=== PATIENT | female | born 1965 | race Caucasian/White ===

== ENCOUNTER 2020-10-07 07:00 | Outpatient (RCR) | payer OTHER, SELFPAY ==
--- NOTE | 2020-09-19 08:05 | HP.PTEVAL ---
Patient's Visit Information GLORIA DODD is a 54 year old F referred to Physical Therapy by ANNE-MARIE CARSON with a diagnosis of Right Shoulder Impingement. Date of Evaluation: 09/19/20 Physical Therapist: Keyla Patton DPT - Visit Plan Frequency: 2x /Week Duration: 4 Weeks Plan: Scapular Strength/Stabilization, Thoracic Mobility, Ultrasound as modality of choice. HEP Given IE: Postural education, Scapular retraction, pec corner stretch, bilateral ER GTB, upper trap stretch - Subjective She has been having shoulder pain in the right for years- Went to [facility]- Level 3 impingement with x-rays- did not think its a total tear- has to do therapy for 2 weeks prior to an MRI. Pain is located in the anterior shoulder- does not radiate down the arm. Does have tightness in the neck but has gone away. Describes the pain as sharp but when she lays on it its more dull and achy. Sleep: disturbed hard to lay on the right side. Worst: 7/10 Agg: Can't lay on it or reach behind or overhead Best: 0/10 Eases: bring down to a resting position and rub it. No medications or injections. No MRI. No decreased shear operator helper strength, finger dexterity- Left Hand dominate but does more sports things right handed. No blurred vision, CERVANTES- does have an ENT eval scheduled for possible BPPV. Feels the shoulder continues to get worse. 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 - Objective Posture: FH, RS- can correct with verbal and tactile cues but does not maintain. Gait: good arm swing and trunk rotation-posture continues to be fair with FH, RS. Palpation: not tender to touch. Observation: moderate winging of the scapula- poor scapular mobility. ROM: Cervical: WFL tightness with upper trap and levator stretching Shoulder: Flexion: 150 degrees Abd: 165 degrees, IR: to bra line, ER: 50 degrees- can perform all WNL with overpressure and pain Elbow/Wrist/Hand: WFL Finger dexterity: WFL. Strength: Scap: poor, Shoulder: 4/5 isometric in 90/90, Elbow: 4+/5, Wrist: 5/5, Associate Store Director: equal bilaterally. Sensation: WNL. Special Test: Spurlings: negative, Empty can: negative, Speeds: positive, Gomez: positive, Neer: positive - Goals Goal 1:: Patient will be I with HEP and progression Goal Time Frame: 4-6 Weeks Goal 2:: Patient will maintain proper posture t/o tx session to demo increased core and scapular strength/stabilization Goal Time Frame: 4-6 Weeks Goal 3:: Patient will demo full AROM of the right UE without pain Goal Time Frame: 4-6 Weeks Goal 4:: Patient will report no pain for 1 week Goal Time Frame: 4-6 Weeks - Rehabilitation Potential Physical Therapy Diagnosis: Patient presents with hypomobility- she has decreased pain free ROM, scapular and UE strength/stabilization and muscular endurance leading to poor posture and increased pain with ADL's. Rehabilitation Potential: Fair - Anticipated Interventions Patient/Client Instruction: Educate patient on: Benefits of Fitness Program Therapeutic Exercise to Include: Strength training, Endurance training, Coordination, Body mechanics, Postural training, Flexibilty training, Neuromotor development, Passive ROM, Active ROM, Dynamic Lumbar Stabilization, Scapular Strength/Stabilization For the Purpose of:: To improve muscle performance and motor function TENS: Yes Cryotherapy (ice pack, ice massage): Yes Thermo therapy (hot pack): Yes Ultrasound (thermal/non thermal): Yes Thank you for the opportunity to evaluate your patient. For Medicare and Medicare HMO plans, please review the plan of care and approve it. It will need to be FAXED BACK to us at [phone] for Medicare purposes. For Medicare only, by signing this I certify the plan of care. Please let me know if there are questions or concerns regarding this plan of care. Physician Signature: Date:
--- NOTE | 2020-10-07 07:32 | HP.PTDCSUM ---
It has been my pleasure to treat GLORIA DODD referred by ANNE-MARIE CARSON, with the diagnosis of Right Shoulder Impingement for a total of 6 visit(s). Discharge Date: Please see the following information for a summary of their discharge status. Subjective: Patient reports she is ready to be d/c and continue HEP % Improvement: 90 Objective/Function: Posture: fair throughout. Gait: good arm swing and trunk rotation. Palpation: not tender to touch. Observation: moderate winging of the scapula bilaterally ROM: Cervical: WFL tightness with upper trap and levator stretching Shoulder: WFL Elbow/Wrist/Hand: WFL Finger dexterity: WFL. Strength: Scap: fair, Shoulder: 4+/5 isometric in 90/90, Elbow: 5/5, Wrist: 5/5, Examiner Of Currency: equal bilaterally. Sensation: WNL. Special Test: Spurlings: negative, Empty can: negative, Speeds: positive, Gomez: positive, Neer: positive Goal 1:: Patient will be I with HEP and progression Goal Progress: Goal Met Goal 2:: Patient will maintain proper posture t/o tx session to demo increased core and scapular strength/stabilization Goal Progress: Progressing Goal 3:: Patient will demo full AROM of the right UE without pain Goal Progress: Goal Met Goal 4:: Patient will report no pain for 1 week Goal Progress: Progressing Plan: 10/07/2020: Discharge to home exercise program. Scapular Strength/Stabilization, Thoracic Mobility, Ultrasound as modality of choice. HEP Given IE: Postural education, Scapular retraction, pec corner stretch, bilateral ER GTB, upper trap stretch If there are questions or concerns regarding this patient's physical therapy, please feel free to call me at [phone]. Thank you for the referral of this patient. Sincerely, Keyla Patton, DPT Balance/Gait/Functional tests - Balance/Special Test Scores Quick DASH Score: 15.9075
== END 2020-10-07 10:19 | disposition home or self-care (01) ==
LOC: PT 07:00
DX: M75.111 Incomplete rotator cuff tear or rupture of right shoulder, not specified as traumatic (principal); M75.41 Impingement syndrome of right shoulder
CPT/HCPCS: 97110; 97162; 97164; 97530

== ENCOUNTER → 2024-06-09 | Outpatient (CLI) | payer OTHER, SELFPAY ==
[2024-06-09 11:21] LABS: Absolute Lymphocyte Count 2.26 X10^3/uL (0.83-4.51); Absolute Neutrophil Count 5.4 X10^3/uL (2.0-7.7); Basophil# 0.05 X10^3/uL; Basophil% 0.6 % (0-1); Eosinophil# 0.12 X10^3/uL; Eosinophils% 1.4 % (0-5); Hematocrit 43.3 % (37-47); Hemoglobin 14.4 g/dL (12.0-15.0); Lymphocyte # 2.26 X10^3/ul (0.83-4.51); Lymphocyte % 26.9 % (19-41); Mean Corp Hgb Conc 33.3 g/dL (32-36); Mean Corpuscular Hgb 29.9 pg (27.0-32.0); Mean Platelet Vol. 10.9 fl (6.2-12.0); Monocyte# 0.59 X10^3/uL; NRBC Flagged by Analyzer 0 % (0-5); Neutrophil # 5.36 X10^3/uL (2.7-7.7); Neutrophil % 63.7 % (47-70); Platelet Count 280 K/mm3 (150-450); RBC Distribution Width CV 12.7 % (11.6-14.6); RBC Distribution Width SD 41.8 fl (35.1-43.9); Red Blood Count 4.81 M/mm3 (4.2-5.4); White Blood Count 8.4 K/mm3 (4.4-11.0)
[2024-06-09 11:23] LABS: Color, Urine Yellow (Yellow); Glucose, Dipstick Normal (Normal); Ketone-Dipstick Negative (Negative); Leukocyte Esterase-Dipstick Negative /ul (Negative); Nitrite-Dipstick Negative (Negative); Occult Blood-Urine Negative /ul (Negative); Protein-Dipstick Negative (Negative); Urine Bilirubin Dipstick Negative (Negative); Urine Clarity Clear (Clear); Urine Urobilinogen Normal (Normal)
[2024-06-09 12:20] LABS: Protein, Urine (Random) 9.6 mg/dL (0.0-12.0); Protein:Creat Ratio 79 mg/g CRE (0-200)
[2024-06-09 12:23] LABS: ALB/GLOB Ratio 1.4 RATIO (0.9-2.4); AST(SGOT) 20 U/L (<=31); Alanine Aminotransfer ALT/SGPT 14 U/L (<=34); Albumin, Serum 4.3 g/dL (3.5-5.0); Alkaline Phosphatase 91 U/L (35-104); Anion Gap 11 (5-15); BUN 26 mg/dL (4-19); BUN/Creat Ratio 27.7 RATIO (10-20); Calcium,Total 9.3 mg/dL (7.6-11.0); Carbon Dioxide 22.7 mmol/L (21.0-32.0); Chloride 106 mmol/L (98-108); Creatinine, Serum 0.93 mg/dL (0.70-1.20); EST Glomerular Filtration Rate 72 (>60); Globulin 3.1 g/dL (2.2-4.2); Glucose 92 mg/dL (70-99); Potassium 4.2 mmol/L (3.3-5.1); Protein, Total 7.4 g/dL (5.9-8.4); Sodium Level 139 mmol/L (133-145); Total Bilirubin 0.97 mg/dL (0.00-1.30)
[2024-06-09 12:37] LABS: CRP < 3.00 mg/L (0.0-3.0); Rheumatoid Factor < 10.0 IU/mL (<15)
[2024-06-10 13:08] LABS: CCP IgG Antibodies 9 units (0-19)
[2024-06-12 08:08] LABS: ANTINUCLEAR ANTIBODIES DIRECT Negative (Negative)
== END | disposition home or self-care (01) ==
PROVIDERS: Referring Provider Internal Medicine Rheumatology; Visit Provider Internal Medicine Rheumatology
DX: M18.0 Bilateral primary osteoarthritis of first carpometacarpal joints (principal); M17.11 Unilateral primary osteoarthritis, right knee
CPT/HCPCS: 36415; 80053; 81002; 82570; 84156; 85025; 86038; 86140; 86200; 86431

== ENCOUNTER 2024-08-28 11:00 | Outpatient (RCR) | payer OTHER, SELFPAY ==
--- NOTE | 2024-07-17 08:51 | HP.PTEVAL ---
Patient's Visit Information Visit Information Visit Information: GLORIA DODD is a 58 year old F referred to Physical Therapy by LESVIA VELAZCO with a diagnosis of Joint pain. Date of Evaluation: 06/30/24 Physical Therapist: Josh Santa DPT Visit Plan Frequency: 2-3x /Week Duration: 4 Weeks Plan: 1) DN to thenar musculature, joint mobs to CMC, STM to thenar as well. 2) progress strengthening throughout hand. Subjective Subjective: Pt. is here today for her initial evaluation with diagnosis joint pain. Pt. reports having pain in B CMC joints, especially with joint approximation. Pt. did have an xray showing moderate to severe OA in both thumbs. Pt. reports the L is worse than the R. Pt. is L hand dominant. 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 Pt. denies n/T in either UE. PT. reports her biggest issue is with gripping, writing, and carrying objects. Pt. is hopeful to decrease her symptoms in order to get back to all work and recreational activities without limitations. No issues with sleeping. Pt. has no pain with extension, mostly with adduction and approximation. Pt. is hopeful to reduce symptoms in order to get back to all work and recreational actiivites with out limitations. Pain L CMC joint: Pain Intensity (Out of 10): 2 Pain Intensity Range: 1 and 7 R CMC joint: Pain Intensity (Out of 10): 1 Pain Intensity Range: 0 and 5 Objective Objective: POSTURE: Normal. PALPATION: Pt. has increased tenderness along CMC joint bilateraly, not as much along extensor tendon. No pain with distal thumb joints. NEURO: Normal ROM: Pt. has limited approximation of her thumbs, marked crepetius with movement. Pain with adduction. MMT: Pt. has normal full jig inspector strength, marked weakness and pain with pinch gripping. All of patients pain is at CMC joint. Balance/Special Test Scores DASH Disability /Symptom Score: 25.0000 Goals Goal 1:: LTG: Pt. to be I with HEP. Goal Time Frame: 4-6 Weeks Goal 2:: LTG: pt. to have full B thumb ROM without increase in symptoms. Goal Time Frame: 4-6 Weeks Goal 3:: LTG: Pt. to complete all work related activities without increase in symptoms. Goal Time Frame: 4-6 Weeks Rehabilitation Potential Physical Therapy Diagnosis: Pt. has signs and symptoms consistent with B CMC joint pain, L worse than R. Pt. has marked weakness, increased difficulty with functional use and increased pain. Rehabilitation Potential: Good Anticipated Interventions Patient/Client Instruction: Educate patient on: Condition, Plan of Care, Risk Factors and Benefits of Fitness Program For the Purpose of:: To facilitate caregiver knowledge, To improve self management, To prevent re-injury and To improve ability to perform tasks related to life management Therapeutic Exercise to Include: Strength training, Power training, Flexibilty training, Passive ROM and Active ROM For the Purpose of:: To decrease pain, To increase ROM, To improve nutrient delivery to tissue, To increase oxygenation perfusion, To improve muscle performance and motor function and To improve ability to perform ADL's Manual Therapy Techniques to Include: Mobilization, Functional dry needling and Soft tissue mobilization For the Purpose of:: To decrease pain, To decrease swelling/inflammation, To increase ROM, To improve nutrient delivery to tissue, To increase oxygenation perfusion and To improve muscle performance and motor function Ultrasound (thermal/non thermal): Yes Paraffin bath: Yes For the Purpose of:: To decrease pain, To decrease swelling/inflammation, To increase ROM, To improve health of tissue and To decrease soft tissue restriction Text: Thank you for the opportunity to evaluate your patient. For Medicare and Medicare HMO plans, please review the plan of care and approve it. It will need to be FAXED BACK to us at [phone] for Medicare purposes. For Medicare only, by signing this I certify the plan of care. Please let me know if there are questions or concerns regarding this plan of care. Physician Signature: Date:
--- NOTE | 2024-07-17 10:44 | HP.PTDCSUM ---
Discharge Summary D/C summary: It has been my pleasure to treat GLORIA DODD referred by LESVIA VELAZCO, with the diagnosis of Joint pain for a total of 7 visit(s). Discharge Date: 07/14/24 Please see the following information for a summary of their discharge status. Subjective Subjective: Pt. doing okay. Pt. reports no major pain, but still has issues with gripping and writing. L worse than R. Pt. reports having some success with her mobility, but pain is still about the same. Pain L CMC joint: Pain Intensity (Out of 10): 2 R CMC joint: Pain Intensity (Out of 10): 1 Overall Improvement % Improvement: 15 Objective Objective/Function: Pt. is overall a little bit better with her mobility, but not much change with her pain. I would like her to follow up with a hand therapist to focus on her CMC joint. I am recommending that she follow up with OT katelyn Saucedo. Goals Goal 1:: LTG: Pt. to be I with HEP. Goal Progress: Progressing Goal 2:: LTG: pt. to have full B thumb ROM without increase in symptoms. Goal Progress: Progressing Goal 3:: LTG: Pt. to complete all work related activities without increase in symptoms. Goal Progress: Not Progressing Plan Plan: 1) DN to thenar musculature, joint mobs to CMC, STM to thenar as well. 2) progress strengthening throughout hand. D/C Information Discharge Comments: I am having Gloria follow up with hand specialist in OT. d/c sentence: If there are questions or concerns regarding this patient's physical therapy, please feel free to call me at [phone]. Thank you for the referral of this patient. Sincerely, Josh Martinez Sipos, DPT Balance/Gait/Functional tests Balance/Special Test Scores DASH Disability /Symptom Score: 25.0000 Improvement % Improvement: 15
--- NOTE | 2024-07-17 19:29 | HP.OTEVAL ---
Patient's Visit Information Visit Information Visit Information: GLORIA DODD is a 58 year old F, referred to Occupational Therapy by LESVIA VELAZCO, with a diagnosis of OA bilateral cmcJ. Date of Evaluation: 07/17/24 Occupational Therapist: Kelsey Olson, HOSEA/Michelle, CHT Subjective Subjective: This 58 year old female was seen for OT eval with dx of bilateral CMC osteoarthrosis. pt states she has had pain for a long time. left is more painful than her right. pt is left handed. 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 pt would like to know what she can do to decrease her pain to return to doing ADLs at her PLOF. Pain right hand: Current Pain Intensity: 2 Pain Intensity Range: 6 and 8 left hand: Current Pain Intensity: 4 Pain Intensity Range: 8 ROM CMC: right 7 left 10 MP: right 60 left 45 IP: right 60 left 70 Palmar Abduction: right 35 left 40 ROM Comments: pt demo with thumb instability AROM Strength Communications Project Manager: right 45# left 55# Lateral Pinch: right 10# left 2# Tripod Pinch: right 6# left 2 Sensation Sensation Comments: denies Special Tests CMC Grind: positive bilateral Quick DASH-Disab of Arm,Shoulder& Hand Quick DASH Score: 33.3325 Goals Goal:Communications Project Manager/Pinch strength at least 75% of unaffected hand: Yes Goal:No pain with affected hand use: Yes Goal:Full use of affected hand in daily activities including work: Yes Other Goal: brace use: Pt will demo understanding of using supportive bracing 80% of workday/ADLS to decrease stress on tendon origin to allow healing and decrease pain by end of 2nd session. joint protection: Pt will demo understanding of joint protection and ergonomics when performing BADLs and IADLs by d/c Pt will demo understanding of adaptive Equipment use to decrease stress on joints to allow pt to perform BADSL and IADLS at CEDRIC level. Rehabilitation General Assessment: pt arrives with positive symptoms of Bilateral CMC OA. pt has pain that is limiting use of bilateral hands more on left than right with ADLs. Pt would benefit from skilled OT services 1-2x week for 4 weeks to assist pt in returning to her PLOF. Today therapist ed. pt on maynak. to decrease pts pain, ed. pt on joint protection mayank. orthosis use, adpt. eq. to decrease stress on lig/tendons and modalities to alleviate pts pain. pt demo understanding and agrees to POC. Rehabilitation Potential: Good Anticipated Interventions Anticipated Interventions: Triggerpoint Release, Modalities, Orthoses, Joint Protection/Energy Conservation, Ergonomic Education, Education re assistive Equipment, Education re Diagnosis and Home Program Visit Plan Frequency: 1-2x /Week Duration: 3 Weeks TEXT: Thank you for the opportunity to evaluate your patient. For Medicare and Medicare HMO plans, please review the plan of care and approve it. It will need to be FAXED BACK to us at [phone] for Medicare purposes. Please let me know if there are questions or concerns regarding this plan of care. Physician Signature: Date:
--- NOTE | 2024-07-17 19:29 | HP.OTEVAL ---
Patient's Visit Information Visit Information Visit Information: GLORIA DODD is a 58 year old F, referred to Occupational Therapy by LESVIA VELAZCO, with a diagnosis of OA bilateral cmcJ. Date of Evaluation: 07/17/24 Occupational Therapist: Kelsey Olson, HOSEA/Michelle, CHT Subjective Subjective: This 58 year old female was seen for OT eval with dx of bilateral CMC osteoarthrosis. pt states she has had pain for a long time. left is more painful than her right. pt is left handed. 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 pt would like to know what she can do to decrease her pain to return to doing ADLs at her PLOF. Pain right hand: Current Pain Intensity: 2 Pain Intensity Range: 6 and 8 left hand: Current Pain Intensity: 4 Pain Intensity Range: 8 ROM CMC: right 7 left 10 MP: right 60 left 45 IP: right 60 left 70 Palmar Abduction: right 35 left 40 ROM Comments: pt demo with thumb instability AROM Strength Charter Driver: right 45# left 55# Lateral Pinch: right 10# left 2# Tripod Pinch: right 6# left 2 Sensation Sensation Comments: denies Special Tests CMC Grind: positive bilateral Quick DASH-Disab of Arm,Shoulder& Hand Quick DASH Score: 33.3325 Goals Goal:Charter Driver/Pinch strength at least 75% of unaffected hand: Yes Goal:No pain with affected hand use: Yes Goal:Full use of affected hand in daily activities including work: Yes Other Goal: brace use: Pt will demo understanding of using supportive bracing 80% of workday/ADLS to decrease stress on tendon origin to allow healing and decrease pain by end of 2nd session. joint protection: Pt will demo understanding of joint protection and ergonomics when performing BADLs and IADLs by d/c Pt will demo understanding of adaptive Equipment use to decrease stress on joints to allow pt to perform BADSL and IADLS at CEDRIC level. Rehabilitation General Assessment: pt arrives with positive symptoms of Bilateral CMC OA. pt has pain that is limiting use of bilateral hands more on left than right with ADLs. Pt would benefit from skilled OT services 1-2x week for 4 weeks to assist pt in returning to her PLOF. Today therapist ed. pt on mayank. to decrease pts pain, ed. pt on joint protection mayank. orthosis use, adpt. eq. to decrease stress on lig/tendons and modalities to alleviate pts pain. pt demo understanding and agrees to POC. Rehabilitation Potential: Good Anticipated Interventions Anticipated Interventions: Triggerpoint Release, Modalities, Orthoses, Joint Protection/Energy Conservation, Ergonomic Education, Education re assistive Equipment, Education re Diagnosis and Home Program Visit Plan Frequency: 1-2x /Week Duration: 3 Weeks TEXT: Thank you for the opportunity to evaluate your patient. For Medicare and Medicare HMO plans, please review the plan of care and approve it. It will need to be FAXED BACK to us at [phone] for Medicare purposes. Please let me know if there are questions or concerns regarding this plan of care. Physician Signature: Date:
--- NOTE | 2024-08-28 11:32 | HP.OTDCSUM_ITS ---
Discharge Summary D/C Summary: It has been my pleasure to treat GLORIA DODD under orders from LESVIA VELAZCO, for the diagnosis of OA bilateral cmcJ for a total of 9 visit(s). Please see the following information for a summary of their discharge status. Overall Improvement % Improvement: 60 Objective Objective/Function: ROM CMC: right 10 left 10 MP: right 60 left 50 IP: right 60 left 70 Palmar Abduction: right 45 increase from 35 left 45* increase from 40* ROM Comments: pt demo with thumb instability AROM Strength Tray Line Worker: right 65# increase from 45# left 65 a increase from 55# Lateral Pinch: right 10# same as eval a 25% for her age left 6# from inital a 10% for age eval 2# Tripod Pinch: right 6# left 4# increase from 2# avg pinch for non arthritic thumbs is 10# pts pain limits pts functional strength. pts resting pain resolved- pt demo understanding of her joint protection mayank. Goals Patient Goals: Decrease Pain, Use Hand/Wrist/Arm Normally Again and Be More Independent in ADLS Goal:Tray Line Worker/Pinch strength at least 75% of unaffected hand: Yes Goal:No pain with affected hand use: Yes Goal:Full use of affected hand in daily activities including work: Yes Other Goal: brace use: Pt will demo understanding of using supportive bracing 80% of workday/ADLS to decrease stress on tendon origin to allow healing and decrease pain by end of 2nd session. joint protection: Pt will demo understanding of joint protection and ergonomics when performing BADLs and IADLs by d/c Pt will demo understanding of adaptive Equipment use to decrease stress on joints to allow pt to perform BADSL and IADLS at CEDRIC level. D/C Information d/c sentence: If there are questions or concerns regarding this patient's occupational therapy, please fell free to call me at [phone]. Thank you for the ref erral of this patient. Sincerely, Kelsey Olson, OTR/L, CHT
--- NOTE | 2024-08-28 11:32 | HP.OTDCSUM_ITS ---
Discharge Summary D/C Summary: It has been my pleasure to treat GLORIA DODD under orders from LESVIA VELAZCO, for the diagnosis of OA bilateral cmcJ for a total of 9 visit(s). Please see the following information for a summary of their discharge status. Overall Improvement % Improvement: 60 Objective Objective/Function: ROM CMC: right 10 left 10 MP: right 60 left 50 IP: right 60 left 70 Palmar Abduction: right 45 increase from 35 left 45* increase from 40* ROM Comments: pt demo with thumb instability AROM Strength Latin American Studies Professor: right 65# increase from 45# left 65 a increase from 55# Lateral Pinch: right 10# same as eval a 25% for her age left 6# from inital a 10% for age eval 2# Tripod Pinch: right 6# left 4# increase from 2# avg pinch for non arthritic thumbs is 10# pts pain limits pts functional strength. pts resting pain resolved- pt demo understanding of her joint protection mayank. Goals Patient Goals: Decrease Pain, Use Hand/Wrist/Arm Normally Again and Be More Independent in ADLS Goal:Latin American Studies Professor/Pinch strength at least 75% of unaffected hand: Yes Goal:No pain with affected hand use: Yes Goal:Full use of affected hand in daily activities including work: Yes Other Goal: brace use: Pt will demo understanding of using supportive bracing 80% of workday/ADLS to decrease stress on tendon origin to allow healing and decrease pain by end of 2nd session. joint protection: Pt will demo understanding of joint protection and ergonomics when performing BADLs and IADLs by d/c Pt will demo understanding of adaptive Equipment use to decrease stress on joints to allow pt to perform BADSL and IADLS at CEDRIC level. D/C Information d/c sentence: If there are questions or concerns regarding this patient's occupational therapy, please fell free to call me at [phone]. Thank you for the ref erral of this patient. Sincerely, Kelsey Olson, OTR/L, CHT
== END 2024-08-28 11:47 | disposition home or self-care (01) ==
LOC: OT 11:00
DX: M25.50 Pain in unspecified joint (principal)
CPT/HCPCS: 97110; 97140; 97161; 97166; 97530